=== PATIENT | female | born 1960 | race Caucasian/White ===

== ENCOUNTER 2018-04-17 15:35 | Inpatient (IN) | payer BC ==
[~2018-04-17] VITALS: Ht 160 cm; Wt 94.8 kg
[2018-04-17 15:53] VITALS: BP_SYST 95
[2018-04-17 16:29] LABS: RED BLOOD CELL COUNT(AUTO) 2.35 MIL/uL (4.2-6.2); RED CELL DISTRIBUTION WIDTH 16.3 % (9.0-15.0)
[2018-04-17] MEDS ORDERED: NEPH PO (16:36)
[2018-04-17] MEDS ORDERED: BUDE6HFA INH (16:36)
[2018-04-17] MEDS ORDERED: METO25TA6 PO (16:36)
[2018-04-17] MEDS ORDERED: ONDA4TAB5 PO (16:36)
[2018-04-17] MEDS ORDERED: SCOP1PAT17 TD (16:36)
[2018-04-17] MEDS ORDERED: METO-290 PO (16:36)
[2018-04-17] MEDS ORDERED: MONT10TA25 PO (16:36)
[2018-04-17] MEDS ORDERED: CHOL500037 PO (16:36)
[2018-04-17] MEDS ORDERED: BENA20TA2 PO (16:36)
[2018-04-17] MEDS ORDERED: ALBU2.5V7 INH (16:36)
[2018-04-17] MEDS ORDERED: SERT-131 PO (16:36)
[2018-04-17 16:40] LABS: MEAN CORPUSCULAR HEMOGLOBIN 29 pg (27-31); MEAN CORPUSCULAR HGB CONC 34 % (32-36); MEAN CORPUSCULAR VOLUME 86 fL (79.0-98.0); PLATELET COUNT (AUTO) 502 K/uL (130-430); WHITE BLOOD COUNT (AUTO) 29.2 K/uL (4.8-10.8)
[2018-04-17 16:45] LABS: CALCIUM 9.2 mg/dL (8.4-11.0); CREATININE 2.76 mg/dL (0.55-1.30); POTASSIUM 3.5 mmol/L (3.5-5.1)
[2018-04-17 16:48] LABS: HEMATOCRIT 20.2 % (36-48); HEMOGLOBIN 6.8 g/dL (12.0-16.0); INR 1.1 (0.8-1.2); PROTHROMBIN TIME 11.1 SECS (9.5-12.5)
[2018-04-17 16:51] LABS: TOTAL BILIRUBIN 1.2 mg/dL (0.0-1.0)
[2018-04-17] MEDS ORDERED: cefTRIAXone 1 GM in D5W 50 ML IV ONE (17:30)
[2018-04-17] MEDS ORDERED: NACL 0.9% 2,000 ML IV ONE (17:30)
[2018-04-17] MEDS ORDERED: cefTRIAXone 1 GM VIAL ONE (17:41)
[2018-04-17 17:52] LABS: BAND % (MANUAL) 12 % (0-6); BASOPHILS % (MANUAL) 0 % (0-2); EOSINOPHILS % (MANUAL) 0 % (0-7); LYMPHOCYTES % (MANUAL) 1 % (20-46); MONOCYTES % (MANUAL) 8 % (0-11)
[2018-04-17] MEDS ORDERED: DIPHENHYDRAMINE HCL 25 MG CAPSULE PO PRN (18:00)
[2018-04-17 18:28] VITALS: BP_SYST 96
[2018-04-17] MEDS: ALBUTEROL SULFATE 0.083% 2.5 MG/3 ML VIAL.NEB INH SCH ×2 (19:16→23:23)
[2018-04-17] MEDS: IPRATROPIUM BROM 0.5 MG/2.5 ML VIAL.NEB (ATROVENT) INH SCH ×2 (19:16→23:23)
[2018-04-17 19:40] VITALS: BP_SYST 99
[2018-04-17] MEDS ORDERED: AZITHROMYCIN 500 MG in NS 250 ML IV SCH (20:00)
[2018-04-17] MEDS ORDERED: LEVOFLOXACIN 250 MG/D5W 50 ML IV SCH (20:00)
[2018-04-17 20:10] VITALS: BP_SYST 96
[2018-04-17] MEDS ORDERED: cefTRIAXone 1 GM IVPB PREMIX 50 ML IV ONE (21:00)
[2018-04-17] MEDS: ONDANSETRON HCL 4 MG/2 ML VIAL IVP PRN (22:05)
[2018-04-17] MEDS: AZITHROMYCIN 500 MG in NS 250 ML IV SCH (23:06)
[2018-04-18] VITALS: BP_SYST 99
[2018-04-18] MEDS: NACL 0.9% 1,000 ML IV SCH ×3 (01:56→17:46)
[2018-04-18] MEDS: IPRATROPIUM BROM 0.5 MG/2.5 ML VIAL.NEB (ATROVENT) INH SCH ×7 (04:00→23:41)
[2018-04-18] MEDS: ALBUTEROL SULFATE 0.083% 2.5 MG/3 ML VIAL.NEB INH SCH ×7 (04:00→23:42)
[2018-04-18 04:35] VITALS: BP_SYST 94
[2018-04-18] MEDS: METOCLOPRAMIDE HCL 10 MG/2 ML VIAL IVP SCH ×5 (06:09→23:48)
[2018-04-18 06:30] LABS: MEAN CORPUSCULAR HEMOGLOBIN 28 pg (27-31); MEAN CORPUSCULAR HGB CONC 33 % (32-36); MEAN CORPUSCULAR VOLUME 84 fL (79.0-98.0); PLATELET COUNT (AUTO) 427 K/uL (130-430); RED BLOOD CELL COUNT(AUTO) 2.38 MIL/uL (4.2-6.2); RED CELL DISTRIBUTION WIDTH 17.3 % (9.0-15.0)
[2018-04-18 06:40] LABS: CALCIUM 8.8 mg/dL (8.4-11.0); CREATININE 2.95 mg/dL (0.55-1.30)
[2018-04-18] MEDS: ACETAMINOPHEN 325 MG TABLET PO PRN ×2 (06:55→20:48)
[2018-04-18 07:44] LABS: HEMATOCRIT 20.1 % (36-48); HEMOGLOBIN 6.6 g/dL (12.0-16.0)
[2018-04-18 07:45] LABS: WHITE BLOOD COUNT (AUTO) 28.8 K/uL (4.8-10.8)
[2018-04-18] MEDS ORDERED: *TPN PER PHARMACY XX PRN (07:45)
[2018-04-18 08:05] VITALS: BP_SYST 112
[2018-04-18 08:15] LABS: PHOSPHORUS 1.7 mg/dL (2.7-4.5)
[2018-04-18] MEDS: SERTRALINE HCL 50 MG TABLET PO SCH (09:07)
[2018-04-18] MEDS: cefTRIAXone 1 GM IVPB PREMIX 50 ML IV SCH (09:07)
[2018-04-18 09:33] LABS: BAND % (MANUAL) 5 % (0-6); BASOPHILS % (MANUAL) 0 % (0-2); EOSINOPHILS % (MANUAL) 0 % (0-7); LYMPHOCYTES % (MANUAL) 2 % (20-46); METAMYELOCYTES % 2 % (0-0); MONOCYTES % (MANUAL) 10 % (0-11)
[2018-04-18 12:11] VITALS: BP_SYST 101
[2018-04-18] MEDS: ONDANSETRON HCL 4 MG/2 ML VIAL IVP PRN (14:43)
[2018-04-18 16:31] VITALS: BP_SYST 108
[2018-04-18] MEDS ORDERED: PANTOPRAZOLE SODIUM 40 MG/VIAL (PROTONIX) IVP ONE (17:15)
[2018-04-18] MEDS: MONTELUKAST 10 MG TABLET PO SCH (17:46)
[2018-04-18] MEDS ORDERED: TPN CENTRAL IV SCH ×9 (18:00)
[2018-04-18] MEDS ORDERED: SODIUM CHLORIDE IV SCH ×9 (18:00)
[2018-04-18] MEDS ORDERED: [UNRECOGNIZED DRUG - OTHER] IV SCH ×9 (18:00)
[2018-04-18] MEDS ORDERED: NA PHOS IV SCH ×9 (18:00)
[2018-04-18 19:13] LABS: HEMATOCRIT 25.9 % (36-48); HEMOGLOBIN 8.7 g/dL (12.0-16.0); MEAN CORPUSCULAR HEMOGLOBIN 28 pg (27-31); MEAN CORPUSCULAR HGB CONC 34 % (32-36); MEAN CORPUSCULAR VOLUME 84 fL (79.0-98.0); PLATELET COUNT (AUTO) 432 K/uL (130-430); RED BLOOD CELL COUNT(AUTO) 3.09 MIL/uL (4.2-6.2); RED CELL DISTRIBUTION WIDTH 16.2 % (9.0-15.0)
[2018-04-18 19:20] LABS: WHITE BLOOD COUNT (AUTO) 27.4 K/uL (4.8-10.8)
[2018-04-18 19:47] LABS: BAND % (MANUAL) 5 % (0-6); BASOPHILS % (MANUAL) 0 % (0-2); EOSINOPHILS % (MANUAL) 0 % (0-7); LYMPHOCYTES % (MANUAL) 1 % (20-46); METAMYELOCYTES % 2 % (0-0); MONOCYTES % (MANUAL) 5 % (0-11); MYELOCYTES % 2 % (0-0)
[2018-04-18 20:00] VITALS: BP_SYST 98
[2018-04-18] MEDS: AZITHROMYCIN 500 MG in NS 250 ML IV SCH (20:43)
[2018-04-18] MEDS: INSULIN REGULAR, HUMAN 100 UNITS/ML, 10 ML VIAL (novoLIN R) SUBCUT PRN (20:50)
[2018-04-19] VITALS: BP_SYST 103
[2018-04-19] MEDS: IPRATROPIUM BROM 0.5 MG/2.5 ML VIAL.NEB (ATROVENT) INH SCH ×6 (03:38→23:43)
[2018-04-19] MEDS: ALBUTEROL SULFATE 0.083% 2.5 MG/3 ML VIAL.NEB INH SCH ×6 (03:38→23:42)
[2018-04-19] MEDS: NACL 0.9% 1,000 ML IV SCH (05:45)
[2018-04-19] MEDS: METOCLOPRAMIDE HCL 10 MG/2 ML VIAL IVP SCH ×3 (05:56→18:01)
[2018-04-19] MEDS: INSULIN REGULAR, HUMAN 100 UNITS/ML, 10 ML VIAL (novoLIN R) SUBCUT PRN ×2 (06:02→11:37)
[2018-04-19 07:42] LABS: ALBUMIN 0.8 g/dL (3.4-4.8); CALCIUM 9.1 mg/dL (8.4-11.0); CREATININE 2.33 mg/dL (0.55-1.30); PHOSPHORUS 3.1 mg/dL (2.7-4.5); POTASSIUM 3.5 mmol/L (3.5-5.1)
[2018-04-19 07:44] LABS: HEMOGLOBIN 8.1 g/dL (12.0-16.0); MEAN CORPUSCULAR HEMOGLOBIN 29 pg (27-31); MEAN CORPUSCULAR HGB CONC 34 % (32-36); MEAN CORPUSCULAR VOLUME 85 fL (79.0-98.0); PLATELET COUNT (AUTO) 373 K/uL (130-430); RED BLOOD CELL COUNT(AUTO) 2.81 MIL/uL (4.2-6.2); RED CELL DISTRIBUTION WIDTH 16.9 % (9.0-15.0); WHITE BLOOD COUNT (AUTO) 25.1 K/uL (4.8-10.8)
[2018-04-19 08:25] VITALS: BP_SYST 124
[2018-04-19] MEDS: PANTOPRAZOLE SODIUM 40 MG/VIAL (PROTONIX) IVP SCH (08:34)
[2018-04-19] MEDS: cefTRIAXone 1 GM IVPB PREMIX 50 ML IV SCH (08:35)
[2018-04-19] MEDS: SERTRALINE HCL 50 MG TABLET PO SCH (08:35)
[2018-04-19 11:04] LABS: BAND % (MANUAL) 3 % (0-6); BASOPHILS % (MANUAL) 0 % (0-2); EOSINOPHILS % (MANUAL) 0 % (0-7); LYMPHOCYTES % (MANUAL) 2 % (20-46); MONOCYTES % (MANUAL) 11 % (0-11)
[2018-04-19 12:59] VITALS: BP_SYST 122
[2018-04-19] MEDS ORDERED: ALTEPLASE 2 MG VIAL MC ONE (15:15)
[2018-04-19 15:34] VITALS: BP_SYST 150
[2018-04-19] MEDS: ACETAMINOPHEN 325 MG TABLET PO PRN (15:44)
[2018-04-19 16:29] VITALS: BP_SYST 150
[2018-04-19] MEDS ORDERED: TPN CENTRAL IV SCH ×10 (18:00)
[2018-04-19] MEDS ORDERED: [UNRECOGNIZED DRUG - OTHER] IV SCH ×10 (18:00)
[2018-04-19] MEDS ORDERED: SODIUM ACETATE IV SCH ×10 (18:00)
[2018-04-19] MEDS ORDERED: SODIUM CHLORIDE IV SCH ×10 (18:00)
[2018-04-19] MEDS: MONTELUKAST 10 MG TABLET PO SCH (18:01)
[2018-04-19 20:00] VITALS: BP_SYST 120
[2018-04-19] MEDS: AZITHROMYCIN 500 MG in NS 250 ML IV SCH (20:21)
[2018-04-20] VITALS: BP_SYST 122
[2018-04-20] MEDS: METOCLOPRAMIDE HCL 10 MG/2 ML VIAL IVP SCH ×2 (00:44→06:55)
[2018-04-20] MEDS: IPRATROPIUM BROM 0.5 MG/2.5 ML VIAL.NEB (ATROVENT) INH SCH ×3 (03:35→11:06)
[2018-04-20] MEDS: ALBUTEROL SULFATE 0.083% 2.5 MG/3 ML VIAL.NEB INH SCH ×3 (03:35→11:05)
[2018-04-20 06:12] LABS: BASOPHILS # (AUTO) 0.3 K/uL (0.0-0.2); LYMPHOCYTES # (AUTO) 0.6 K/uL (1.0-5.5); LYMPHOCYTES % (AUTO) 2.5 % (20.5-51.5); RED BLOOD CELL COUNT(AUTO) 2.95 MIL/uL (4.2-6.2)
[2018-04-20 06:20] LABS: CALCIUM 8.9 mg/dL (8.4-11.0); CREATININE 2.84 mg/dL (0.55-1.30); POTASSIUM 4.4 mmol/L (3.5-5.1)
[2018-04-20 06:31] LABS: ALBUMIN 0.9 g/dL (3.4-4.8); PHOSPHORUS 4.5 mg/dL (2.7-4.5)
[2018-04-20 07:11] LABS: BASOPHILS % (AUTO) 1.1 % (0.0-2.0); EOSINOPHILS % (AUTO) 0.1 % (0.0-4.0); HEMATOCRIT 25.3 % (36-48); MEAN CORPUSCULAR HEMOGLOBIN 27 pg (27-31); MEAN CORPUSCULAR HGB CONC 32 % (32-36); MEAN CORPUSCULAR VOLUME 86 fL (79.0-98.0); MONOCYTES # (AUTO) 0.9 K/uL (0.0-1.0); MONOCYTES % (AUTO) 3.5 % (1.7-9.3); NEUTROPHILS # (AUTO) 23.7 K/uL (1.8-7.7); NEUTROPHILS % (AUTO) 92.8 % (40.0-70.0); PLATELET COUNT (AUTO) 390 K/uL (130-430); RED CELL DISTRIBUTION WIDTH 17.2 % (9.0-15.0); WHITE BLOOD COUNT (AUTO) 25.5 K/uL (4.8-10.8)
[2018-04-20 07:45] VITALS: BP_SYST 122
[2018-04-20] MEDS: PANTOPRAZOLE SODIUM 40 MG/VIAL (PROTONIX) IVP SCH (09:52)
[2018-04-20] MEDS: cefTRIAXone 1 GM IVPB PREMIX 50 ML IV SCH (09:52)
[2018-04-20] MEDS: SERTRALINE HCL 50 MG TABLET PO SCH (09:52)
[2018-04-20 11:10] VITALS: BP_SYST 132
== END 2018-04-20 11:29 | disposition hospice, inpatient (51) | DRG 871 ==
LOC: SED 15:35 → STU 17:46
PROVIDERS: ADMIT Internal Medicine; ATTEND Internal Medicine
PROC: 30233N1 Transfusion of Nonautologous Red Blood Cells into Peripheral Vein, Percutaneous Approach (ICD-10-PCS; principal; 2018-04-17)
PROC: 3E0336Z Introduction of Nutritional Substance into Peripheral Vein, Percutaneous Approach (ICD-10-PCS; 2018-04-17)
PROC: 5A1D70Z Performance of Urinary Filtration, Intermittent, Less than 6 Hours Per Day (ICD-10-PCS; 2018-04-18)
DX: A41.9 Sepsis, unspecified organism (principal); J18.1 Lobar pneumonia, unspecified organism; N18.6 End stage renal disease; E43 Unspecified severe protein-calorie malnutrition; I12.0 Hypertensive chronic kidney disease with stage 5 chronic kidney disease or end stage renal disease; N17.9 Acute kidney failure, unspecified; J90 Pleural effusion, not elsewhere classified; C49.4 Malignant neoplasm of connective and soft tissue of abdomen; F32.9 Major depressive disorder, single episode, unspecified; E88.09 Other disorders of plasma-protein metabolism, not elsewhere classified; E11.22 Type 2 diabetes mellitus with diabetic chronic kidney disease; J45.909 Unspecified asthma, uncomplicated; D63.8 Anemia in other chronic diseases classified elsewhere; R09.02 Hypoxemia; Z90.710 Acquired absence of both cervix and uterus; Z92.21 Personal history of antineoplastic chemotherapy; Z92.3 Personal history of irradiation; Z93.2 Ileostomy status; Z99.2 Dependence on renal dialysis; Z79.899 Other long term (current) drug therapy; Z90.722 Acquired absence of ovaries, bilateral; Z68.37 Body mass index [BMI] 37.0-37.9, adult
CPT/HCPCS: 36415; 36600; 71045; 76604; 80048; 80053; 82550-TC; 82803-TC; 82962; 83605; 83735-TC; 83880; 84100-TC; 84478-TC; 84484; 85007; 85025; 85027; 85610-TC; 85730-TC; 86886; 86900; 86901; 86920; 87040-TC; 87070-TC; 87081; 87116; 87205-TC; 90935; 93005; 94640; 94760; 96365; 99291; C9113; J0456; J0696; J1956; J2405; J2765; J2997; J3475; J3480; J7030; J7050; J7131; J7613; P9021